=== PATIENT | female | born 1935 | race Two or more races ===

== ENCOUNTER 2016-08-11 09:32 | Day surgery (SDC) | payer MEDICARE, OTHER ==
[~2016-08-11] VITALS: Ht 157.5 cm; Wt 74.0 kg
[~2016-08-11 09:32] MED LIST: ASPI-973 PO; CHOL200025 PO; ESCI10TA52 PO; ESOM40CA41 PO; HYG25 PO; LEVO25TA5 PO; LIP40 PO; METO25TA99 PO; POTA10CA42 PO; Sodium Chloride LOK Flush 10 mL Syringe IV PRN; VITA1TAB47 PO; fentaNYL-PF 50 mCg/mL 2 mL Inj IVPUSH PRN
[2016-08-11] MEDS ORDERED: fentaNYL-PF 50 mCg/mL 2 mL Inj IVPUSH ONE (09:33)
[2016-08-11 10:47] VITALS: BP 129/66; PULSE 60; RESP 16; O2SAT 97
[2016-08-11] MEDS ORDERED: LOSA50TA37 PO (10:49)
[2016-08-11] MEDS ORDERED: BUPR-97 PO (10:49)
[2016-08-11] MEDS ORDERED: ISOS60TA2 PO (10:49)
[2016-08-11] MEDS ORDERED: 0.9% Sodium Chloride 1,000 ML IV ONE (11:03)
[2016-08-11 11:32] VITALS: BP 118/67; PULSE 64; RESP 16; O2SAT 93
[2016-08-11 11:42] VITALS: BP 121/67; PULSE 67; RESP 16; O2SAT 95
[2016-08-11 11:51] VITALS: BP 130/67; PULSE 65; RESP 16; O2SAT 95
--- NOTE | 2016-08-11 15:35 | ENDO ---
[address] [address] ENDOSCOPY PROCEDURE PATIENT: RUMA GONSALEZ : 1935 MR#: [id number] ADMIT: 08/11/2016 JOB ID: [id number] DATE: 08/11/2016 TYPE OF OPERATION: Esophagogastroduodenoscopy with biopsy. PREOPERATIVE DIAGNOSIS(ES): Dysphagia and gastroesophageal reflux disease. POSTOPERATIVE DIAGNOSIS(ES): Mild nonerosive gastritis status post biopsy. ANESTHESIA: 1. Fentanyl 75 mcg. 2. Versed 3 mg IV administered. COMPLICATION: None. BLOOD LOSS: Minimal. DESCRIPTION OF PROCEDURE: After risks and benefits were explained to the patient, informed consent was obtained. After anesthesia administered, upper endoscope was inserted in mouth intubating to the esophagus, stomach, second portion of duodenum. Mucosa carefully examined. After procedure was done, the scope was withdrawn and the procedure terminated. FINDINGS: Upon inspection of the esophagus, esophagus is normal without masses, ulcers, lesions. Z-line located at 35 cm from incisors. Upon entry into the stomach, there is mild nonerosive gastritis that was seen. No ulcers or masses or lesions were seen. Retroflexion was normal. Duodenal bulb, first and second portion normal. Biopsies taken from antrum and body of the stomach and distal esophagus. IMPRESSIONS: Mild nonerosive gastritis. RECOMMENDATION: 1. Await pathology results. 2. Followup in GI clinic as needed.
--- NOTE | 2016-08-14 14:32 | PATH ---
SURGICAL PATHOLOGY Attending Physician:Dima Bedoya MD CASE STATUS: Signed Out PATIENT NAME: RUMA GONSALEZ PID: [id number] : 1935 DATE COLLECTED:08/11/2016 21:24 SPECIMEN: 1: Stomach, Antrum, Biopsy 2: Gastric, Biopsy 3: Esophagus, Biopsy 4: Esophagus, Biopsy CLINICAL HISTORY: 1). ANTRUM BIOPSY 2). GASTRIC BODY BIOPSY 3). MID ESOPHAGUS BIOPSY 4). DISTAL ESOPHAGUS BIOPSY FINAL DIAGNOSIS: 1.GASTRIC ANTRUM BIOPSY: MILD CHRONIC GASTRITIS INVOLVING ANTRAL MUCOSA. Negative for evidence of Helicobacter on H&E stain. Negative for intestinal metaplasia. Negative for dysplasia and malignancy. 2.GASTRIC BODY BIOPSIES: DIFFUSE MODERATE TO SEVERE CHRONIC GASTRITIS, FOCALLY ACTIVE INVOLVING FUNDIC MUCOSA. Immunohistochemistry for Helicobacter pending, to be reported by addendum. Negative for intestinal metaplasia. Negative for dysplasia and malignancy. 3.MID ESOPHAGUS BIOPSY: FRAGMENTS OF SQUAMOUS EPITHELIUM WITH MINIMAL REACTIVE CHANGES, BUT NEGATIVE FOR SIGNIFICANT INFLAMMATION. Negative for intraepithelial eosinophils. Negative for dysplasia and malignancy. 4.DISTAL ESOPHAGUS BIOPSY: SQUAMOUS MUCOSA WITH MINIMAL SMALL FRAGMENTS OF GLANDULAR EPITHELIUM CONSISTENT WITH GASTRIC CARDIA-TYPE MUCOSA, NEGATIVE FOR SPECIALIZED METAPLASIA OF [place]' S-TYPE ESOPHAGUS. Negative for intraepithelial eosinophils. Negative for dysplasia and malignancy. ICD10 K29.70 GROSS DESCRIPTION: The specimen is received in four formalin filled containers labeled with the patient's name. 1). The specimen is sublabeled "antrum" it consists of 2 portions of tissue which aggregate to 0.3 x 0.3 x 0.2 CM. The specimen is entirely submitted in cassette 1A. 2). The specimen is sublabeled "gastric body" and consists of 2 portions of tissue which aggregate to 0.4 x 0.3 x 0.2 CM. The specimen is entirely submitted in cassette 2A. 3). The specimen is sublabeled "midesophagus" and consists of 2 portions of tissue which aggregate to 0.2 x 0.2 x 0.2 CM. The specimen is entirely submitted in cassette 3A. 4). The specimen is sublabeled "distal esophagus" and consists of 2 portions of tissue which aggregate to 0.3 x 0.2 x 0.2 CM. The specimen is entirely submitted in cassette 4A. 08/11/2016 DAC MICRO DESCRIPTION: See diagnosis. ICD-9 CODES: CPT CODES: 1: 10548 2: 96367, 32194 3: 95004 4: 05635 PROCEDURE/ADDENDA: Immunohistochemistry SPI Interpretation {Not Entered} Results-Comments Immunohistochemistry Results: 2.GASTRIC BODY BIOPSY: NEGATIVE FOR HELICOBACTER PYLORI BY IMMUNOHISTOCHEMISTRY. This test was developed and its performance characteristics determined by [facility]. It has not been cleared or approved by the [place]. Food and Drug Administration. The FDA has determined that such clearance or approval is not necessary. This test is used for clinical purposes. It should not be regarded as investigational or for research. Electronically Signed Out Vernon Lee MD Electronically Signed Out Vernon Lee MD [facility] [address], [place] [address] Technical component performed at [facility], [address], [place], [address]
== END 2016-08-11 23:59 | disposition home or self-care (01) ==
LOC: END 09:32
PROVIDERS: ATTEND Internal Medicine Gastroenterology
DX: K29.50 Unspecified chronic gastritis without bleeding (principal); R13.10 Dysphagia, unspecified; K21.9 Gastro-esophageal reflux disease without esophagitis; R05 Cough; I10 Essential (primary) hypertension; I25.10 Atherosclerotic heart disease of native coronary artery without angina pectoris; E78.5 Hyperlipidemia, unspecified; F41.9 Anxiety disorder, unspecified; F32.9 Major depressive disorder, single episode, unspecified; Z90.710 Acquired absence of both cervix and uterus; Z79.82 Long term (current) use of aspirin; Z79.890 Hormone replacement therapy
CPT/HCPCS: 43239; 88305; 88342; G0500; J2250; J3010; J7030